=== PATIENT | female | born 1980 | race Two or more races ===

== ENCOUNTER 2017-01-30 09:52 | Emergency (ER) | payer OTHER ==
[~2017-01-30] VITALS: Ht 167.6 cm; Wt 81.8 kg
[~2017-01-30 09:52] MED LIST: Feosol PO; MOTRIN800 MG PO; Motrin PO; NATALCARE RX1 TABLET PO; NO HOME MEDS; PROCARDIA20 MG PO; Percocet 5/325,Endoc PO; ZITHROMAX Z-PA250 MG PO
[2017-01-30 12:07] LABS: HEMATOCRIT 34.3 % (36.0-46.0); MCH 28.1 PG (29.0-34.0); MCHC 31.8 G/DL (30.0-36.0); MCV 88.4 FL (83-99); MEAN PLAT.VOLUME 9.9 uM^3 (9.5-12.4); PLATELET COUNT 378 K/uL (156-360); RBC DIS.WIDTH-CV 15.5 % (11.8-14.6); RED BLOOD COUNT 3.88 M/uL (3.80-5.20); WHITE BLOOD COUNT 8.4 K/uL (4.1-10.2)
[2017-01-30 12:13] LABS: CHLORIDE 109 mEq/L (99-109); POTASSIUM 4.1 mEq/L (3.7-5.4); SODIUM 139 mEq/L (136-147)
[2017-01-30 12:15] LABS: GLUCOSE 83 mg/dL (70-99)
[2017-01-30 12:16] LABS: ANION GAP 9 MEQ/L (2-14)
[2017-01-30 12:19] LABS: GFR ESTIMATE (CALCULATED) > 59 mL/min/
[2017-01-30 12:20] LABS: UREA NITROGEN (BUN) 10 mg/dL (9-23)
[2017-01-30 12:23] LABS: TROP-I INTERPRETATION NEGATIVE; TROPONIN-I < 0.01 ng/mL (0.0-0.30)
[2017-01-30 12:27] LABS: QUANTITATIVE HCG 84.1 MIU/ML
[2017-01-30 14:38] LABS: TROP-I INTERPRETATION NEGATIVE; TROPONIN-I < 0.01 ng/mL (0.0-0.30)
[2017-01-30] MEDS ORDERED: LIDODERM 5% P1 PATCH TD (14:57)
[2017-01-30] MEDS ORDERED: SKELAXIN800 MG PO (14:57)
[2017-01-30] MEDS ORDERED: TRAMADOL HCL50 MG PO (14:57)
[2017-01-30 15:29] VITALS: BP 114/75
== END 2017-01-30 15:30 | disposition home or self-care (01) ==
LOC: EME 09:52
PROVIDERS: Physician Assistant
DX: M25.511 Pain in right shoulder (principal); O03.9 Complete or unspecified spontaneous abortion without complication; F17.200 Nicotine dependence, unspecified, uncomplicated
CPT/HCPCS: 71020; 73030; 80048; 84484; 84702; 85027; 93005; 99281; 99284